=== PATIENT | male | born 1985 | race Caucasian/White ===

== ENCOUNTER 2017-01-26 23:57 | Emergency (ER) | payer BC ==
[2017-01-27 00:03] VITALS: BP 135/68; PULSE 69; RESP 18; TEMP 97.6
[2017-01-27] MEDS ORDERED: CEPHALEXIN 500MG STARTER PACK 4 CAP BTL PO STA (00:28)
--- NOTE | 2017-01-27 00:29 | ED ---
Skin/Abscess/FB HPI - General Chief complaint: Skin/Abscess/Foreign Body Stated complaint: Toe Infection Time Seen by Provider: 01/27/17 00:18 Source: patient, family, RN notes reviewed, old records reviewed Mode of arrival: ambulatory Limitations: no limitations - History of Present Illness Initial comments: Patient is a 32 year old male with chief complaint with right great toe pain. Patient reports he is having an infected toenail. Patient reports that he has had a problem with this toe nial in the past, and reports he had new shoes with agrevated. Patient reports he is concerned that it is going to get worse, because he has a wedding tomorrow to be in. Patient denies fever, chills, nausea , vomiting, chest pain, shortness of breath, paresthesias. - Related Data Previous Rx's Medication Instructions Recorded Cephalexin [Keflex] 500 mg PO Q8HR #21 cap 01/27/17 Allergies Allergy/AdvReac Type Severity Reaction Status Date / Time Penicillins Allergy Unknown Verified 01/27/17 00:04 Review of Systems ROS Statement: Those systems with pertinent positive or pertinent negative responses have been documented in the HPI. ROS Other: All systems not noted in ROS Statement are negative. Past Medical History Past Medical History: No Reported History History of Any Multi-Drug Resistant Organisms: None Reported Past Surgical History: Hernia Repair Past Psychological History: No Psychological Hx Reported Smoking Status: Never smoker Past Alcohol Use History: None Reported Past Drug Use History: None Reported General Exam - General Exam Comments Initial Comments: Well appearing 32 year old male, no dsitress. Limitations: no limitations General appearance: alert, in no apparent distress Head exam: Present: atraumatic, normocephalic, normal inspection Eye exam: Present: normal appearance, PERRL, EOMI. Absent: scleral icterus, conjunctival injection, periorbital swelling ENT exam: Present: normal exam, mucous membranes moist Neck exam: Present: normal inspection. Absent: tenderness, meningismus, lymphadenopathy Respiratory exam: Present: normal lung sounds bilaterally. Absent: respiratory distress, wheezes, rales, rhonchi, stridor Cardiovascular Exam: Present: regular rate, normal rhythm, normal heart sounds. Absent: systolic murmur, diastolic murmur, rubs, gallop, clicks GI/Abdominal exam: Present: soft, normal bowel sounds. Absent: distended, tenderness, guarding, rebound, rigid Extremities exam: Present: normal inspection, full ROM, normal capillary refill , other (mild erythema over right lateral great toe. no abscess or drainage. No evidence of impacted toe nail. ). Absent: tenderness, pedal edema, joint swelling, calf tenderness Back exam: Present: normal inspection Neurological exam: Present: alert, oriented X3, CN II-XII intact Psychiatric exam: Present: normal affect, normal mood Skin exam: Present: warm, dry, intact, normal color. Absent: rash Course Vital Signs 01/27/17 00:01 Temperature 97.6 F Pulse Rate 69 Respiratory 18 Rate Blood Pressure 135/68 O2 Sat by Pulse 97 Oximetry Medical Decision Making - Medical Decision Making Patient is a 32 year old male with chief complaint with right great toe pain. Patient reports he is having an infected toenail. Patient reports that he has had a problem with this toe nial in the past, and reports he had new shoes with agrevated. Patient reports he is concerned that it is going to get worse, because he has a wedding tomorrow to be in. Patient denies fever, chills, nausea , vomiting, chest pain, shortness of breath, paresthesias. Patient has mild erythema on right inner great toenail. No abscess or impacted toenail. discussed can start patient on Keflex, and do warm soaks over the area. Patient agrees to treatment plan and will comply. Return parameters discussed. Disposition Clinical Impression: Ingrowing nail, right great toe Disposition: HOME SELF-CARE Condition: Good Instructions: Ingrown Nail (ED) Additional Instructions: Patient is advised to do warm Epsom salt soaks. Apply antibiotic cream over the area. Monitor for any worsening signs of infection. Try to keep the nail pulled above the skin. Completely antibiotic prescription. Follow-up with a primary care provider within the next 2-3 days or return to the emergency department if any alarming signs or symptoms occur. Prescriptions: Cephalexin [Keflex] 500 mg PO Q8HR #21 cap Referrals: None,Stated [Primary Care Provider] - 1-2 days Madelyn Howe MD [STAFF PHYSICIAN] - 1-2 days Ephraim Dukes DPM [STAFF PHYSICIAN] - 1-2 days Time of Disposition: 00:27
== END 2017-01-27 00:52 | disposition home or self-care (01) ==
LOC: EC 23:57
DX: L60.0 Ingrowing nail (principal); Z88.0 Allergy status to penicillin
CPT/HCPCS: 99283